=== PATIENT | female | born 1950 | race Caucasian/White ===

== ENCOUNTER 2017-04-12 09:51 | Emergency (ER) | payer OTHER ==
[~2017-04-12] VITALS: Ht 162.5 cm; Wt 86.2 kg
[~2017-04-12 09:51] MED LIST: 'PARAFON FORTE500 M1 PO; ANTIVERT/2525 MG PO; ASPIRIN81 M1 PO; BACTRIM DS 8001 TA1 PO; BAYER ASPIRIN C81 MG PO; CIPRO250 MG PO; CIPRO750 MG PO; CIPROFLOXACIN500 MG PO; DAYPRO600 M1 PO; DIAZEPAM10 M1 PO; DULOXETINE HCL60 MG PO; FENOFIBRATE160 MG PO; FLAGYL500 MG PO; FLEXERIL5 MG PO; HYDROCODONE BIT1 T11 PO; HYDROCODONE BIT1 T12 PO; LEXAPRO20 MG PO; LISINOPRIL20 MG PO; LISINOPRIL40 MG PO; LOPRESSOR25 MG PO; METFORMIN500 MG PO; MULTI VITAMINS1 TAB PO; MULTIVITAMIN1 TAB PO; NAPROSYN500 MG PO; PERCOCET 325 MG1 TA8 PO; PRAVACHOL40 MG PO; PRAVACHOL80 MG PO; PREDNISONE10 MG PO; PYRIDIUM200 MG PO; ROBAXIN750 MG PO; SKELAXIN800 M1 PO; TOPROL XL25 MG PO; TOPROL XL50 MG PO; TORADOL10 MG PO; TRAZODONE50 MG PO; VALIUM10 MG PO; VICO10300 PO; VICODIN 5-3001 EACH PO; VICODIN 5/500 505 MG PO; VITAMIN B COMPL1 CAP PO; VITAMIN D1000 IU PO; VOLTAREN GEL1% TP; WELLBUTRIN XL300 MG PO
[2017-04-12 10:13] LABS: BILIRUBIN NEGATIVE (NEGATIVE); BLOOD NEGATIVE (NEGATIVE); CLARITY SL CLOUDY (CLEAR); COLOR YELLOW (YELLOW); GLUCOSE NEGATIVE (NEGATIVE); KETONE NEGATIVE (NEGATIVE); LEUKO ESTERASE 1+ (NEGATIVE); NITRITE NEGATIVE (NEGATIVE); PH 6.5 (5.0-9.0); PROTEIN NEGATIVE (NEGATIVE)
[2017-04-12 10:22] LABS: BASO % 0.5 % (0.0-1.0); EOS # 0.2 10*3/uL (0.0-0.4); EOS % 3.1 % (1.0-4.0); HEMATOCRIT 41.4 % (37.0-47.0); HEMOGLOBIN 14.3 g/dl (12.0-16.0); LYMPH # 2.6 10*3/uL (1.3-4.4); MEAN CELL VOLUME 87.2 fl (81.0-99.0); MEAN CORPUSCULAR HGB 30.1 pg (27.0-31.0); MEAN CORPUSCULAR HGB CONC 34.5 g/dl (33.0-37.0); MEAN PLATELET VOLUME 9.7 fl (9.6-12.3); MONO # 0.4 10*3/uL (0.1-1.0); MONO % 5.2 % (3.0-9.0); NEUT # 4.4 10*3/uL (2.3-7.9); NEUT % 56.9 % (47.0-73.0); PLATELET COUNT AUTOMATED 333 10*3/uL (130-400); RED BLOOD COUNT 4.75 10*6/uL (4.10-5.10); RED CELL DISTRI WIDTH 12.1 % (0-14.5); WHITE BLOOD COUNT 7.7 10*3/uL (4.8-10.8)
[2017-04-12 10:24] LABS: BACTERIA 1+; URINE REFLEX COMMENT YES (NO); WBC 16-20 wbc/hpf (0-5)
[2017-04-12 10:35] LABS: ALBUMIN 4.1 gm/dl (3.1-4.5); ALKALINE PHOSPHATASE 42 U/L (45-117); BILIRUBIN, TOTAL 0.4 mg/dl (0.2-1.0); BUN 17 mg/dl (7-24); CARBON DIOXIDE 25 mmol/L (21-32); CHLORIDE 103 mmol/L (98-107); EST GLOM FILT AFRICAN AMERICAN > 60 ml/min; GLUCOSE 167 mg/dL (65-99); POTASSIUM 4.1 mmol/L (3.5-5.1); SGOT/AST 41 IU/L (3-35); SGPT/ALT 39 U/L (12-78); SODIUM 141 mmol/L (136-145); TOTAL PROTEIN 7.7 gm/dL (6.4-8.2)
[2017-04-12] MEDS ORDERED: NORCO 5-325 TA1 EACH PO (10:53)
[2017-04-12] MEDS ORDERED: CYCLOBENZAPRINE5 M3 PO (10:53)
== END 2017-04-12 11:10 | disposition home or self-care (01) ==
LOC: ED 09:51
PROVIDERS: Emergency Medicine
DX: M54.9 Dorsalgia, unspecified (principal); R10.13 Epigastric pain; R10.11 Right upper quadrant pain; E78.5 Hyperlipidemia, unspecified; I10 Essential (primary) hypertension; E66.9 Obesity, unspecified; Z90.710 Acquired absence of both cervix and uterus; Z98.890 Other specified postprocedural states; Z79.899 Other long term (current) drug therapy; Z79.82 Long term (current) use of aspirin

== ENCOUNTER → 2021-04-25 | Day surgery (SDC) | payer OTHER, MEDICAID ==
[~2021-04-25] VITALS: Ht 162.5 cm; Wt 68.0 kg
[~2021-04-25] MED LIST changes: +BUPROPION XL300 MG PO; +CIPRO500 MG PO; +CYCLOBENZAPRINE5 M3 PO; +GLIPIZIDE5 MG PO; +IBU800 M1 PO; +JARDIANCE25 MG PO; +NORCO 5-325 TA1 EACH PO
[2021-04-25 09:20] VITALS: BP 154/73
[2021-04-25 11:04] VITALS: BP 107/62
[2021-04-25 11:19] VITALS: BP 111/53
[2021-04-25 11:31] VITALS: BP 127/68
== END | disposition home or self-care (01) ==
LOC: SDC 04-22 11:00
PROVIDERS: ATTEND Surgery
DX: Z12.11 Encounter for screening for malignant neoplasm of colon (principal); K57.30 Diverticulosis of large intestine without perforation or abscess without bleeding; I10 Essential (primary) hypertension; E11.9 Type 2 diabetes mellitus without complications; F32.9 Major depressive disorder, single episode, unspecified; E78.5 Hyperlipidemia, unspecified; Z90.710 Acquired absence of both cervix and uterus; Z85.3 Personal history of malignant neoplasm of breast; Z90.49 Acquired absence of other specified parts of digestive tract; F41.9 Anxiety disorder, unspecified; Z88.5 Allergy status to narcotic agent; Z85.43 Personal history of malignant neoplasm of ovary; Z79.84 Long term (current) use of oral hypoglycemic drugs; Z79.899 Other long term (current) drug therapy; Z20.822 Contact with and (suspected) exposure to COVID-19

== ENCOUNTER 2021-08-07 04:20 | Emergency (ER) | payer OTHER, MEDICAID ==
[~2021-08-07] VITALS: Ht 162.5 cm; Wt 81.6 kg
[2021-08-07 05:47] LABS: BILIRUBIN Negative (Negative); BLOOD 2+ (Negative); CLARITY Clear (Clear); COLOR Yellow (Yellow); GLUCOSE 3+ (Negative); KETONE Negative (Negative); LEUKO ESTERASE Trace (Negative); NITRITE Negative (Negative); SPECIFIC GRAVITY 1.015 (1.001-1.030); UROBILINOGEN 0.2 E.U./dl (0.0-1.0)
[2021-08-07 05:54] LABS: WBC 16-20 wbc/hpf (0-5)
[2021-08-07 05:55] LABS: RBC 21-30 rbc/hpf (0-2)
[2021-08-07] MEDS ORDERED: VIBRAMYCIN100 MG PO (06:14)
== END 2021-08-07 06:33 | disposition home or self-care (01) ==
LOC: ED 04:20
PROVIDERS: Emergency Medicine
DX: L73.8 Other specified follicular disorders (principal); E11.9 Type 2 diabetes mellitus without complications; E78.5 Hyperlipidemia, unspecified; Z79.82 Long term (current) use of aspirin; Z79.899 Other long term (current) drug therapy; Z88.6 Allergy status to analgesic agent

== ENCOUNTER 2022-03-03 12:05 | Emergency (ER) | payer OTHER, MEDICAID ==
[~2022-03-03] VITALS: Wt 83.2 kg
[~2022-03-03 12:05] MED LIST changes: +VIBRAMYCIN100 MG PO
[2022-03-03 12:43] LABS: BASO % 0.5 % (0.0-1.0); EOS # 0.2 10*3/uL (0.0-0.4); EOS % 2.4 % (1.0-4.0); HEMATOCRIT 46.3 % (37.0-47.0); LYMPH # 2.5 10*3/uL (1.3-4.4); LYMPH % 29.3 % (27.0-41.0); MEAN CELL VOLUME 86.7 fl (81.0-99.0); MEAN CORPUSCULAR HGB 29.2 pg (27.0-31.0); MEAN CORPUSCULAR HGB CONC 33.7 g/dl (33.0-37.0); MEAN PLATELET VOLUME 9.6 fl (9.6-12.3); MONO # 0.7 10*3/uL (0.1-1.0); MONO % 8.4 % (3.0-9.0); NEUT # 5.1 10*3/uL (2.3-7.9); NEUT % 59.2 % (47.0-73.0); PLATELET COUNT AUTOMATED 255 10*3/uL (130-400); RED BLOOD COUNT 5.34 10*6/uL (4.10-5.10); RED CELL DISTRI WIDTH 12.8 % (0-14.5); WHITE BLOOD COUNT 8.7 10*3/uL (4.8-10.8)
[2022-03-03 12:53] LABS: ACT PARTIAL THROMBO TIME 25.3 SECONDS (20.0-32.1)
[2022-03-03 13:09] LABS: BUN 19 mg/dl (7-24); CHLORIDE 106 mmol/L (98-107); CREATININE 0.81 mg/dL (0.55-1.02); LIPASE 124 U/L (73-393); POTASSIUM 3.8 mmol/L (3.5-5.1); SGOT/AST 27 IU/L (3-35); SGPT/ALT 31 U/L (12-78); SODIUM 138 mmol/L (136-145)
[2022-03-03 13:10] LABS: ALKALINE PHOSPHATASE 64 U/L (45-117)
== END 2022-03-04 14:27 | disposition left against medical advice (07) ==
LOC: ED 12:05
PROVIDERS: Emergency Medicine
DX: R07.9 Chest pain, unspecified (principal); E11.9 Type 2 diabetes mellitus without complications; I10 Essential (primary) hypertension; E78.00 Pure hypercholesterolemia, unspecified; Z88.8 Allergy status to other drugs, medicaments and biological substances; Z79.899 Other long term (current) drug therapy; Z98.51 Tubal ligation status; Z90.89 Acquired absence of other organs; Z90.710 Acquired absence of both cervix and uterus; Z98.890 Other specified postprocedural states; Z90.49 Acquired absence of other specified parts of digestive tract